=== PATIENT | female | born 1950 | race African-American/Black ===

== ENCOUNTER 2016-09-03 15:56 | Emergency (ER) | payer MEDICARE, MEDICAID ==
[~2016-09-03] VITALS: Ht 177.8 cm; Wt 120.0 kg
[~2016-09-03 15:56] MED LIST: ASPI325T PO; HYDR12.56 PO; LISIPOW XX; LORT5TAB PO; OCUF0.3D LEFT EYE; SIMV5TAB32 PO; SOMA350T PO
[2016-09-03 15:58] VITALS: BP 229/96; PULSE 72; RESP 17; TEMP 98; O2SAT 96
== END 2016-09-03 18:30 | disposition left against medical advice (07) ==
LOC: NED 15:56
DX: M25.512 Pain in left shoulder (principal); Z53.21 Procedure and treatment not carried out due to patient leaving prior to being seen by health care provider
CPT/HCPCS: 99281

== ENCOUNTER 2016-09-16 11:27 | Emergency (ER) | payer MEDICARE, MEDICAID ==
[~2016-09-16] VITALS: Ht 177.8 cm; Wt 125.0 kg
[2016-09-16 11:31] VITALS: BP 162/75; PULSE 84; RESP 16; TEMP 97.9; O2SAT 97
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
[2016-09-16] MEDS ORDERED: ACETAMINOPHEN 325 MG TAB PO ONE (13:15)
[2016-09-16] MEDS ORDERED: PROPARACAINE HCL 0.5% OPHT SOLN 15 ML BTL RIGHT EYE ONE (13:15)
[2016-09-16] MEDS ORDERED: IBUP800T23 PO (13:19)
[2016-09-16] MEDS ORDERED: ERYTOIN10 RIGHT EYE (13:19)
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
== END 2016-09-16 15:08 | disposition home or self-care (01) ==
LOC: NEPB 11:27
DX: S00.83XA Contusion of other part of head, initial encounter (principal); S05.01XA Injury of conjunctiva and corneal abrasion without foreign body, right eye, initial encounter; E11.9 Type 2 diabetes mellitus without complications; I10 Essential (primary) hypertension; E78.00 Pure hypercholesterolemia, unspecified; Z79.82 Long term (current) use of aspirin; Z95.1 Presence of aortocoronary bypass graft; Z87.39 Personal history of other diseases of the musculoskeletal system and connective tissue; Z86.59 Personal history of other mental and behavioral disorders; Z86.79 Personal history of other diseases of the circulatory system; Y04.2XXA Assault by strike against or bumped into by another person, initial encounter
CPT/HCPCS: 70486

== ENCOUNTER → 2016-09-29 | Day surgery (SDC) | payer MEDICARE, MEDICAID ==
[~2016-09-29] MED LIST changes: +AMOX875T PO; -ASPI325T PO; +BUPIVACAINE HCL PF 0.75% 30 ML VIAL ONE; +ERYTOIN10 RIGHT EYE; -HYDR12.56 PO; +IBUP800T23 PO; +LACTATED RINGER'S 1000 ML INJ 1,000 ML ONE; +LIDOCAINE 1.5%/EPINEPHrine 1:200,000 PF SOLN 30 ML AMP ONE; +LISI-519 PO; -LISIPOW XX; -LORT5TAB PO; +METF500T PO; +MIDAZOLAM HCL 5 MG/ML VIAL (1 ML) ONE; -OCUF0.3D LEFT EYE; +ONDANSETRON HCL 4 MG/2 ML VIAL IV PUSH ONE; +PROPOFOL 200 MG/20 ML AMP IV ONE; -SIMV5TAB32 PO; -SOMA350T PO; +ceFAZolin 2 GM PREMIX 50 ML ONE
--- NOTE | 2016-10-02 06:55 | MP ---
cc: BG REYES M.D. DATE OF SURGERY: 09/29/2016 PREOPERATIVE DIAGNOSIS: Left shoulder rotator cuff tear, left shoulder impingement syndrome, left shoulder osteoarthritis, acromioclavicular joint. Left shoulder osteoarthritis, glenohumeral joint. Left shoulder slap labral tear, left shoulder, multiple loose bodies, glenohumeral joint. POSTOPERATIVE DIAGNOSIS: Left shoulder rotator cuff tear, left shoulder impingement syndrome, left shoulder osteoarthritis, acromioclavicular joint. Left shoulder osteoarthritis, glenohumeral joint. Left shoulder slap labral tear, left shoulder, multiple loose bodies, glenohumeral joint. OPERATION: Left shoulder arthroscopic rotator cuff repair. Left shoulder arthroscopic subacromial decompression. Left shoulder arthroscopic distal clavicle excision left shoulder arthroscopic extensive debridement labral tear with chondroplasty and removal of loose bodies. SURGEON Dr. Bg Reyes PRACTICING UROLOGIST: SUNNI Scruggs ANESTHESIA General with interscalene block. ESTIMATED BLOOD LOSS: Less than 50 cc COMPLICATIONS None. IMPLANTS USED: Arthrex JUSTIFICATION: This patient is 56-year female who injured the left shoulder. She had persistent symptoms of pain in regards to condition with failure of conservative treatment. Clinical exam as well as MRI confirmed the above-named findings. The patient was counseled as to the risks and benefits and alternatives of the postsurgical procedure. She did wish to surgery. PROCEDURE IN DETAIL: A written consent was written consent was obtained. The patient identified, taken to the operating room and placed supine on the operating room table. General anesthesia was administered as well 2 grams of IV Ancef. The patient carefully turned to a right lateral decubitus position lateral arm was placed all bony prominences and pressure points are well padded. An arthroscopic arm mancilla was gently applied to the left upper extremity with 10 pounds of traction placed. The left shoulder prepped and draped using Isopropyl alcohol, Hibiclens solution and DuraPrep solution. A standard posterior and anterior glenohumeral arthroscope portal was established, a glenohumeral joint revealed diffuse labral tearing along the anterior superior posterior portion of the labrum with extensively debridement of the labrum which began at 3 o'clock up to the 12 o'clock position back down to the 9 o'clock position. There are multiple osteochondral loose bodies within the shoulder joint which were which were removed arthroscopically with both the shaver and grasper. There is evidence of severe chondromalacia of the glenohumeral joint with unstable cartilage fragmentation chondroplasty the glenohumeral joint was performed. Attention was turned to the subacromial space were there is significant evidence of impingement with bursitis. An arthroscopic Shaver was introduced from the right lateral portal. A subacromial decompression was performed. The shaver used to perform a bursectomy, arthroscopic pineda used to perform acromioplasty. The cautery device was used to release the coracoacromial ligament. The bur was used to perform a distal clavicle excision with 1 cm distal clavicle removed from both the lateral and anterior arthroscopic portals. There is evidence of full-thickness tear along the insertion site of supraspinatus rotator cuff tendon arthroscopic scorpion device was used to shuttle #2 fiber tape suture and a horizontal mattress pattern through the torn tendon. Subsequently the sutures were placed in the eyelet of the Arthrex 4.75 mm bio swivel lock anchor. The anchor was inserted and tuberosity for rotator cuff tendon repair. The repair was probed and noted to have good stability and fixation. At the conclusion of surgical procedure. The portals closed 3-0 Prolene suture. Sterile dressing applied. The patient placed in sling and swath immobilizer. She tolerated the procedure well. No intraoperative his noted. Reddy Islas physician after school program assistant was present during the entire procedure, to include patient positioning, anesthesia, it was felt that the medical necessity of physician after school program assistant was indicated due to complexity of the procedure, the after school program assistant assisted with manipulation of the arm also manipulation of the camera assisted with shuttling sutures and implantation of suture anchor for purpose of rotator cuff tendon repair. MD LILIANA Schneider/violeta /4:36 PM /6:21 AM
== END | disposition home or self-care (01) ==
LOC: ESDC 13:00
PROVIDERS: ATTEND Orthopaedic Surgery Sports Medicine
DX: M75.122 Complete rotator cuff tear or rupture of left shoulder, not specified as traumatic (principal); M75.42 Impingement syndrome of left shoulder; M19.012 Primary osteoarthritis, left shoulder; S43.432A Superior glenoid labrum lesion of left shoulder, initial encounter
CPT/HCPCS: 01630; 01991; 29823; 29824; 29826; 29827; 64417; C1713; J0690; J2250; J2405; J3010; J7120

== ENCOUNTER 2016-12-16 10:05 | Emergency (ER) | payer MEDICARE, MEDICAID ==
[~2016-12-16] VITALS: Ht 177.8 cm; Wt 124.0 kg
[~2016-12-16 10:05] MED LIST changes: -AMOX875T PO; -BUPIVACAINE HCL PF 0.75% 30 ML VIAL ONE; -LACTATED RINGER'S 1000 ML INJ 1,000 ML ONE; -LIDOCAINE 1.5%/EPINEPHrine 1:200,000 PF SOLN 30 ML AMP ONE; -LISI-519 PO; -METF500T PO; -MIDAZOLAM HCL 5 MG/ML VIAL (1 ML) ONE; -ONDANSETRON HCL 4 MG/2 ML VIAL IV PUSH ONE; -PROPOFOL 200 MG/20 ML AMP IV ONE; -ceFAZolin 2 GM PREMIX 50 ML ONE
[2016-12-16 10:08] VITALS: BP 201/88; PULSE 78; RESP 15; TEMP 98.2; O2SAT 98
[2016-12-16 10:30] VITALS: BP 184/80
--- NOTE | 2016-12-16 10:36 | PD ---
HPI Chief Complaint: ENT Complaint Time Seen by Provider: 10:34 Travel History International Travel<30 days: No Contact w/Intl Traveler<30days: No Traveled to known affect area: No History of Present Illness HPI 66 year old female presents to the emergency department for evaluation of left ear pain that started 3 days ago. She states the pain radiates up. No drainage. Patient reports a history of otitis media and states this feels similar. Patient denies any other complaints or symptoms. She reports history of DM, HTN, hyperlipidemia. She is on lisinopril and HCTZ for HTN, but has not yet taken her medications. PFSH Past Medical History Hx Anticoagulant Therapy: Yes (ASPIRIN ONLY) Arthritis: Yes Asthma: No Autoimmune Disease: No Blood Disorders: No Anxiety: Yes Depression: Yes Heart Rhythm Problems: No Cancer: No Cardiovascular Problems: Yes (CABG) High Cholesterol: Yes Chemotherapy: No Chest Pain: Yes Congestive Heart Failure: Yes COPD: No Cerebrovascular Accident: No Diabetes: Yes Diminished Hearing: No Endocrine: No GERD: No Glaucoma: No Headaches: No Hepatitis: No Hiatal Hernia: No Hypertension: Yes Kidney Stones: No Musculoskeletal: No Neurologic: No Psychiatric: Yes (DEPRESSION) Reproductive: No Respiratory: No Migraines: No Myocardial Infarction: No Radiation Therapy: No Renal Failure: No Seizures: No Sickle Cell Disease: No Sleep Apnea: No Thyroid Disease: No Ulcer: No ?: Not : 5 Para: 4 Miscarriage: 1 Past Surgical History Abdominal Surgery: No AICD: No Appendectomy: No Cardiac Surgery: No Cholecystectomy: No Ear Surgery: No Endocrine Surgery: No Eye Surgery: No Genitourinary Surgery: No Gynecologic Surgery: Yes (HYSTERECTOMY) Hysterectomy: Yes Insulin Pump: No Joint Replacement: No Oral Surgery: No Pacemaker: No Thoracic Surgery: No Other Surgery: Yes Social History Alcohol Use: No Tobacco Use: No Substance Use: No Allergies-Medications (Allergen,Severity, Reaction): Coded Allergies: No Known Allergies (Verified , 12/16/16) Reported Meds & Prescriptions Reported Meds & Active Scripts Active Ibuprofen 800 Mg Tab 800 Mg PO Q6HR PRN Erythromycin Opth Oint 5 Mg/Gm Oint 1 Applic RIGHT EYE QID 7 Days Review of Systems Except as stated in HPI: all other systems reviewed are Neg Physical Exam Narrative GENERAL: Well-nourished, well-developed female patient, ambulatory. Afebrile. SKIN: Focused skin assessment warm/dry. HEAD: Normocephalic. Atraumatic. ENT: Mucosa pink and moist. No erythema or exudates. No uvular edema. No uvular , palatal, or tonsillar deviation. Airway patent. Nasal turbinates appear normal without nasal blood, purulent drainage or septal hematoma. Left tympanic membrane with mild erythema. Right tympanic membranes is clear without erythema or perforation. No mastoid tenderness to palpation. EYES: No scleral icterus. No injection or drainage. NECK: Supple, trachea midline. No JVD or lymphadenopathy. CARDIOVASCULAR: Regular rate and rhythm without murmurs, gallops, or rubs. RESPIRATORY: Breath sounds equal bilaterally. No accessory muscle use. Lungs sounds are clear to auscultation. GASTROINTESTINAL: Abdomen soft, non-tender, nondistended. MUSCULOSKELETAL: No cyanosis, or edema. BACK: Nontender without obvious deformity. No CVA tenderness. Data Data Last Documented VS Vital Signs Date Time Temp Pulse Resp B/P Pulse Ox O2 Delivery O2 Flow Rate FiO2 12/16/16 10:08 98.2 78 15 201/88 98 [facility] Medical Decision Making Medical Screen Exam Complete: Yes Emergency Medical Condition: Yes Medical Record Reviewed: Yes Differential Diagnosis Otitis media versus otitis externa versus eustachian tube dysfunction Narrative Course 66-year-old female presents to the emergency department for evaluation of left ear pain for 3 days. No other symptoms. Her blood pressure is 180/84. She has not yet taken her blood pressure medications. She has no associated symptoms. Patient will be discharged with a prescription for amoxicillin. She verbalizes agreement and understanding. The patient was discharged in stable condition with instructions, including return instructions and follow up instructions. Diagnosis Primary Impression: Otitis media Qualified Code: H66.92 - Left otitis media, unspecified chronicity, unspecified otitis media type Referrals: Primary Care Physician call for appointment Patient Instructions: General Instructions, Otitis Media (ED) Additional Instructions: Take antibiotic as directed until gone. Follow up with your primary care physician. Return to the emergency department for any acute, worsening of symptoms. Med/Other Pt SpecificInfo: Prescription(s) given Scripts Amoxicillin 875 Mg Onu398 Mg PO BID 7 Days Ref 0 Prov:Priyanka Cai 12/16/16 Disposition: 01 DISCHARGE HOME Condition: Stable Priyanka Cai Dec 16, 2016 10:36
[2016-12-16] MEDS ORDERED: AMOX875T PO (10:41)
[2016-12-17] MEDS ORDERED: LISI-519 PO (07:08)
[2016-12-17] MEDS ORDERED: METF500T PO (07:08)
== END 2016-12-16 11:00 | disposition home or self-care (01) ==
LOC: NEPD 10:05
DX: H66.92 Otitis media, unspecified, left ear (principal); Z95.1 Presence of aortocoronary bypass graft; E78.00 Pure hypercholesterolemia, unspecified; I50.9 Heart failure, unspecified; E11.9 Type 2 diabetes mellitus without complications; I10 Essential (primary) hypertension
CPT/HCPCS: 99282

== ENCOUNTER 2016-12-17 06:42 | Emergency (ER) | payer MEDICARE, MEDICAID ==
[~2016-12-17] VITALS: Ht 175.3 cm; Wt 124.0 kg
[~2016-12-17 06:42] MED LIST changes: +AMOX875T PO
[2016-12-17 06:46] VITALS: BP 201/86; PULSE 60; RESP 16; TEMP 97.9; O2SAT 100
[2016-12-17] MEDS ORDERED: METF500T PO (07:08)
[2016-12-17] MEDS ORDERED: LISI-519 PO (07:08)
[2016-12-17 07:11] VITALS: BP 133/89
--- NOTE | 2016-12-17 07:26 | PD ---
HPI Chief Complaint: ENT Complaint Time Seen by Provider: 07:19 Travel History International Travel<30 days: No Contact w/Intl Traveler<30days: No Traveled to known affect area: No History of Present Illness HPI 66-year-old female presents with left-sided ear pain and sore throat that is been persistent since she was in the emergency department yesterday. She states that she has no associated chest pain, shortness of breath, nausea, fever or other concurrent complaints other than intermittent headaches. She states that she has been taking her home pain medication without significant relief. Quality is sharp. It is severe per patient. She has not taken her blood pressure medication yet this morning. She denies other change since yesterday. PFSH Past Medical History Hx Anticoagulant Therapy: Yes (ASPIRIN ONLY) Arthritis: Yes Asthma: No Autoimmune Disease: No Blood Disorders: No Anxiety: Yes Depression: Yes Heart Rhythm Problems: No Cancer: No Cardiovascular Problems: Yes (CABG) High Cholesterol: Yes Chemotherapy: No Chest Pain: Yes Congestive Heart Failure: Yes COPD: No Cerebrovascular Accident: No Diabetes: Yes Patient Takes Glucophage: No Diminished Hearing: No Endocrine: No GERD: No Glaucoma: No Headaches: No Hepatitis: No Hiatal Hernia: No Hypertension: Yes Kidney Stones: No Musculoskeletal: No Neurologic: No Psychiatric: Yes (DEPRESSION) Reproductive: No Respiratory: No Migraines: No Myocardial Infarction: No Radiation Therapy: No Renal Failure: No Seizures: No Sickle Cell Disease: No Sleep Apnea: No Thyroid Disease: No Ulcer: No Menopausal: No : 5 Para: 4 Miscarriage: 1 Past Surgical History Abdominal Surgery: No AICD: No Appendectomy: No Cardiac Surgery: No Cholecystectomy: No Coronary Artery Bypass Graft: Yes (states open heart surgery) Ear Surgery: No Endocrine Surgery: No Eye Surgery: No Genitourinary Surgery: No Gynecologic Surgery: Yes (HYSTERECTOMY) Hysterectomy: Yes Insulin Pump: No Joint Replacement: No Oral Surgery: No Pacemaker: No Thoracic Surgery: No Other Surgery: Yes Social History Alcohol Use: No Tobacco Use: No Substance Use: No Allergies-Medications (Allergen,Severity, Reaction): Coded Allergies: No Known Allergies (Verified , 12/16/16) Reported Meds & Prescriptions Reported Meds & Active Scripts Active Reported Metformin (Metformin HCl) 500 Mg Tab 500 Mg PO DAILY With a meal Lisinopril 5 Mg Tab Unknown Dose PO DAILY Review of Systems Except as stated in HPI: all other systems reviewed are Neg Physical Exam Narrative GENERAL: Well-nourished, well-developed patient. Well-appearing SKIN: Warm and dry. HEAD: Normocephalic and atraumatic. EYES: No injection or drainage. ENT: No nasal drainage noted. Bilateral TMs clear, nontender to bilateral mastoids, no drainage from bilateral canals, no erythema to bilateral canals, no pain with movement of bilateral pinna, posterior oropharynx without exudate or erythema, uvula midline, large earrings noted bilaterally with prior piercing location on left with chronic tear and new piercing location NECK: Supple, trachea midline. No meningeal signs, mild cervical lymphadenopathy diffusely that is mildly tender CARDIOVASCULAR: Regular rate and rhythm RESPIRATORY: Breath sounds equal bilaterally. No accessory muscle use. NEUROLOGICAL: Awake and alert. Motor and sensory grossly within normal limits. Normal speech. Data Data Last Documented VS Vital Signs Date Time Temp Pulse Resp B/P Pulse Ox O2 Delivery O2 Flow Rate FiO2 12/17/16 07:11 133/89 12/17/16 06:46 97.9 60 16 100 MDM Medical Decision Making Medical Screen Exam Complete: Yes Emergency Medical Condition: Yes Medical Record Reviewed: Yes (Past history confirmed) Differential Diagnosis Otitis media, seasonal allergies, URI, otitis externa... Narrative Course Patient with otitis media yesterday on exam. Patient's exam appears benign today. Advised to continue antibiotic and follow with primary for further care. Patient has not taken her blood pressure medication yet this morning and I advised her to take this and keep a blood pressure log. Given return instructions and agrees to follow-up as an outpatient. Diagnosis Primary Impression: Ear pain, left Additional Impression: Sore throat Patient Instructions: General Instructions Additional Instructions: follow with primary today, return with any emergent need, continue your home pain medication as needed Med/Other Pt SpecificInfo: No Change to Meds Disposition: 01 DISCHARGE HOME Condition: Stable Yasemin Valentine MD Dec 17, 2016 07:26
== END 2016-12-17 07:42 | disposition home or self-care (01) ==
LOC: NEPC 06:42
DX: H92.02 Otalgia, left ear (principal); J02.9 Acute pharyngitis, unspecified
CPT/HCPCS: 99283

== ENCOUNTER 2017-09-20 11:20 | Day surgery (SDC) | payer MEDICARE, MEDICAID ==
[~2017-09-20] VITALS: Ht 177.8 cm; Wt 127.8 kg
[~2017-09-20 11:20] MED LIST changes: -AMOX875T PO; -ERYTOIN10 RIGHT EYE; -IBUP800T23 PO; +LISI-519 PO; +METF500T PO
[2017-09-20] MEDS ORDERED: IOHEXOL 350 MG/ML 100 ML BTL (for Cath Lab) OTHER ONE (11:21)
[2017-09-20] MEDS ORDERED: IOHEXOL 350 MG/ML 50 ML BTL (for Cath Lab) OTHER ONE (11:21)
[2017-09-20] MEDS ORDERED: SODIUM CHLOR 0.9% 1000 ML INJ 1,000 ML IV SCH (11:45)
[2017-09-20] MEDS ORDERED: METF500T PO (11:56)
[2017-09-20] MEDS ORDERED: CARV3.125 PO (11:56)
[2017-09-20] MEDS ORDERED: HYDR-3583 PO (11:56)
[2017-09-20] MEDS ORDERED: ASPI-183 PO (11:56)
[2017-09-20] MEDS ORDERED: HYDR12.57 PO (11:56)
[2017-09-20] MEDS ORDERED: SIMV20TA PO (11:56)
[2017-09-20] MEDS ORDERED: LISI10TA3 PO (11:56)
[2017-09-20] MEDS ORDERED: METH750T PO (11:56)
[2017-09-20] MEDS ORDERED: ISOS30TA3 PO (11:56)
[2017-09-20 11:57] VITALS: BP 91/77; PULSE 63; RESP 18; TEMP 97.8; O2SAT 97
[2017-09-20 13:14] LABS: AUTOMATED NEUTROPHIL # 3.1 TH/MM3 (1.8-7.7); BASOPHIL % 0.6 % (0.0-2.0); EOSINOPHIL # 0.1 TH/MM3 (0-0.4); EOSINOPHIL % 1.9 % (0.0-4.0); LYMPH % 41.1 % (9.0-44.0); LYMPHOCYTE # 2.7 TH/MM3 (1.0-4.8); MEAN CELL VOLUME 86.6 FL (80.0-100.0); MEAN CORPUSCULAR HEMOGLOBIN 28.9 PG (27.0-34.0); MEAN CORPUSCULAR HGB CONC 33.4 % (32.0-36.0); MEAN PLATELET VOLUME 7.5 FL (7.0-11.0); MONO % 8.7 % (0.0-8.0); MONOCYTE # 0.6 TH/MM3 (0-0.9); NEUT % 47.7 % (16.0-70.0); PLATELET COUNT 312 TH/MM3 (150-450); RED CELL DISTRIBUTION WIDTH 13.3 % (11.6-17.2); WHITE BLOOD COUNT 6.5 TH/MM3 (4.0-11.0)
[2017-09-20] MEDS ORDERED: HEPARIN-NS/PF INJ 1,000 ML ONE (13:20)
[2017-09-20] MEDS ORDERED: MIDAZOLAM HCL 2 MG/2 ML VIAL ONE (13:21)
[2017-09-20 13:37] LABS: BICARBONATE 27.6 MEQ/L (21.0-32.0); CALCIUM 8.9 MG/DL (8.5-10.1); CREATININE 0.9 MG/DL (0.50-1.00)
--- NOTE | 2017-09-20 14:13 | CATHPROC ---
[facility] HIS Report Study Information Study Number Admission Scheduled Start Study Start [id number] Sep 20 2017 11:20AM 09/20/2017 Sep 20 2017 1:17PM Study Type [place] Service Left Heart Cath Cardiac Catheterization Admit Source Facility Department Other [facility] - Tug Master Physician and Clinical Staff Initial Fernandez June Chimney Builder Brick Luci Bruno,RN Recorder Casandra Owens,RT(R) Scrub Iwona Hussein,RT(R) Scrub Jazmin Davis ,RT(R) Procedures Performed Procedure Location (Site) Vessel Name Angiogram LV LV Ventricle Coronary Angiograms LCA Left Coronary Coronary Angiograms RCA Right Coronary Coronary Angiograms CARUSO-LAD Left Coronary Coronary Angiograms SVG-OM CIRC L Heart Cath Wire insertion Fem Art (right) Femoral Art Equipment Time Variety Saw Operator Description Size Mfg Part Number Used/Scraped TRANSDUCER, TRUWAVE [id number] 13:17 [employer] SALIANS * Used W/STOCKCOCK *[id number] 14:02 [employer] MED[employer] VASCADE, FR6 CLOSURE SYSTEM FR 6\7 Used *[id number] *[id number] *[id number] *[id number] 13:17 [employer] PACK, CCL CUSTOM * Used *[id number] 13:17 [employer] PACER PEN, SKIN DUAL W/ RULER * Used *[id number] 13:17 [employer] MEDICAL SHEATH, FR6.5 PRELUDE 11CM FR 6.5 038ACT Used *[id number] 13:17 [employer] MEDICAL WIRE, 3MMJ .035 180CM 180CM Used *[id number] 13:17 [employer] MANIFOLD, 4 PORT * Used *[id number] 13:17 [employer] OMNIPAQUE, 350 MG, 150ML 150ML [id number] Used [id number] 13:17 [employer] MEDICAL BLANKET,WARM AIR CCL * Used *[id number] History: Current Medications Medication Dosage/Unit Route Frequency Last Date/Time Taken ASA Imdur Statins (any) Beta Garcia LISINOPRIL HCTZ History: Allergies Allergy Reaction No Known Allergies History: Risk Factors Family History of Hypertension Dyslipidemia Previous CA Previous Heart Failure Premature CAD Yes Yes Yes Yes No Prior Valve Prior PCI Prior CABG Prior CABGDate Surgery No No Yes 12/03/2009 Cerebrovascular Peripheral Artery Chronic Lung On Dialysis Diabetes Diabetes Therapy Disease Disease Disease No No No No Yes Oral History: Symptoms/Diagnosis Selection Items Chest pain History: CV Disease Selection Items Known CAD History: Stress Tests Stress or Imaging Studies Performed Yes Standard Exercise Stress Test No Stress Echo No Stress Test SPECT Stress Test SPECT Result Stress Test SPECT Ischemia Risk/Extent Yes Positive Low Stress Test CMR No Cardiac CTA Coronary Calcium Score No No History: Other Disease Selection Items CAD HTN History: Other Current Smoker Method Quit Packs a Day Years Used Pack Years No Cigarettes 8 Years Ago 2 30 60 Labs Hgb (g/dl) Hct (%) RBC (MIL/MM3) WBC (l/cumm) Platelets (thousands) 11.60-17.00 35.00-51.00 4.00-5.90 4.00-11.00 150.00-450.00 13.0 39 4.5 6.5 312 Glucose (mg/dl) BUN (mg/dl) Creatinine (mg/dl) BUN:Creatinine (1:x) 74.00-106.00 7.00-18.00 0.50-1.30 10.00-20.00 86 13 0.9 14.4 Na (meq/l) K (meq/l) Cl (meq/l) CO2 (mmol/L) Ca (mg/dl) 136.00-145.00 3.50-5.10 98.00-107.00 21.00-32.00 8.50-10.10 144 4.3 111 27.6 8.9 CPK-MB (ng/ML) 0.50-3.60 Not Drawn Medication Medication Total Dose (Bolus/Oral) Medication Total Dosage/Unit 1% XYLOCAINE 20 mL VERSED 2 mg Medications (Bolus/Oral) Medication Time Given Dosage/Unit Administered By Reason 1% XYLOCAINE 09/20/2017 1:48:14 PM 20 mL Fernandez Major 20 mL 1% XYLOCAINE given in lab by Fernandez Major in Right Groin via Subcutaneous. VERSED 09/20/2017 1:48:43 PM 2 mg Luci Bruno 2 mg VERSED given in lab by Luci Bruno, RN via Peripheral IV. Medication (Drip) Medication Time Given Dosage/Unit Concentration/Unit Diluent (ml) Solution IV Solutions 09/20/2017 1:17:39 PM 0 mL (IV) NaCl .9 Patient arrived on IV Solutions in Left Forearm via Peripheral IV. Pump/Drip Flow = 20 ml/hr using Na Cl .9. Initial Case Assessment Cardiovascular HR Rhythm NIBP Chest Pain 66 reg 180/84 0 Edema Present Skin color Skin None Normal Warm Circulatory - Right Pulses Dorsalis Pedis Femoral 3 2 Scale (0,1,2,3,4,d) Circulatory - Left Pulses Dorsalis Pedis Femoral 2 2 Scale (0,1,2,3,4,d) Circulatory - Lower Extremities Color Lower Right Color Lower Left Normal Normal Neurological State Oriented to time-place- Alert Moves all extremities person Respiration - General Respiration Rate SpO2 (%) (B/min) 17 100 Final Case Assessment Cardiovascular HR Rhythm NIBP Chest Pain 71 reg 181/84 0 Edema Present Skin color Skin None Normal Warm Circulatory - Right Pulses Dorsalis Pedis Femoral 3 2 Scale (0,1,2,3,4,d) Circulatory - Left Pulses Dorsalis Pedis Femoral 2 2 Scale (0,1,2,3,4,d) Circulatory - Lower Extremities Color Lower Right Color Lower Left Normal Normal Neurological State Oriented to time-place- Alert Moves all extremities person Respiration - General Respiration Rate SpO2 (%) (B/min) 16 97 Chronological Log Time Study Chronological Log 13:13:15 Patient arrived via Bed. 13:17:19 Patient Name, D.O.B, / Armband Verified By R.N. 13:17:20 Consent signed by the physician and the patient and verified by the Tug Master staff. 13:17:21 Pre-op and post- op instructions given; patient acknowledges understanding of instructions. 13:17:21 Verbal Stimulation=2 Physical Stimulation=2 Airway=2 Respiration=2 TOTAL=8. (0=absent, 1=li mited, 2=present) 13:17:22 Presedation assessment performed by Tug Master RN. 13:17:24 Patient has been NPO for More than 6Hrs. 13:17:24 Skin Breakdown- 13:17:28 Estiven Prominences Protected 13:17:30 A # 20 IV was noted in the Forearm (left). Grade = 0 13:17:39 Patient arrived on IV Solutions in Left Forearm via Peripheral IV. Pump/Drip Flow = 20 ml/h r using NaCl .9. 13:17:40 History and physical on the chart or being dictated. Assessment: Initial Case, HR=66 BPM, Rhythm=reg, IEHD=594/84 mmhg, Chest Pain=0, Edema=None, Co dahlia=Normal, Skin = Warm Right Pulses: Manuel Ped=3, Femoral=2 Left Pulses: Manuel Ped=2, Femoral=2 13:17:41 Lower Right Extremities: Color=Normal Lower Left Extremities: Color=Normal Neurological: State=Alert, Ox3, LAMB Respiration: Resp=17 B/min, KyO6=300 % Vitals capture started with the following parameters, Patient=Adult, Interval=5 min, Initial Pr jycurv=343 mmHg, 13:20:49 Deflation Rate=5 mmHg, Cuff placed on right Arm 13:21:16 Reference ECG taken 13:22:22 HR=64 bpm, MXQO=199/84 mmhg, LcI3=376.0 %, Resp=16 B/min, Pain=0, Rolando=10, Mendoza=2 13:25:53 Bilateral groins prepped with 2% chlorhexidine, and draped after a 3 minute waiting time. 13:26:38 HR=66 bpm, AVPB=267/84 mmhg, FyS8=098.0 %, Resp=12 B/min, Pain=0, Rolando=10, Mendoza=2 13:32:07 HR=64 bpm, XWMS=694/89 mmhg, SpO2=93.0 %, Resp=16 B/min, Pain=0, Rolando=10, Mendoza=2 13:36:15 MD paged 13:36:34 HR=68 bpm, UPHO=937/91 mmhg, SpO2=99.0 %, Resp=13 B/min, Pain=0, Rolando=10, Mendoza=2 13:38:21 MD responded 13:39:27 Pressure channel 1 zeroed. 13:42:24 HR=68 bpm, TKAX=673/94 mmhg, McT0=328.0 %, Resp=14 B/min, Pain=0, Rolando=10, Mendoza=2 13:43:43 MD arrived. 13:46:38 HR=66 bpm, BCER=834/91 mmhg, SpO2=99.0 %, Resp=17 B/min, Pain=0, Rolando=10, Mendoza=2 Time Out. Correct patient, correct procedure, correct physician, power injector loaded, or not loaded with contrast with 13:46:55 surgical team present. Time Out Concurred by MD and individual staff in procedure. 13:47:41 Case Start 13:47:58 Verbal Stimulation=2 Physical Stimulation=2 Airway=2 Respiration=2 TOTAL=8. (0=absent, 1=li mited, 2=present) 13:48:14 20 mL 1% XYLOCAINE given in lab by Fernandez Major in Right Groin via Subcutaneous. 13:48:43 2 mg VERSED given in lab by Luci Bruno, ANGELA via Peripheral IV. 13:49:53 Access site was Right Femoral Artery. 13:49:59 A wire was inserted via Fem Art (right). 13:50:01 A SHEATH, FR6.5 PRELUDE 11CM FR 6.5 was advanced into the Fem Art (right) using the Percuta neous technique. Recorded Pressure: Ao, HR=69, Condition=Condition 1 13:50:17 (Aorta) Ao 176/76/117 A 3DRC INFINITI CATHETER FR 6 was advanced over a wire. OMNIPAQUE, 350 MG, 150ML 150ML was used for 13:50:27 injections. 13:50:45 The RCA was injected and visualized at various angles. OMNIPAQUE, 350 MG, 150ML 150ML used . 13:51:11 The SVG-OM was injected and visualized at various angles. OMNIPAQUE, 350 MG, 150ML 150ML us ed. 13:51:39 HR=64 bpm, NGGZ=764/85 mmhg, SpO2=98.0 %, Resp=19 B/min, Pain=0, Rolando=10, Mendoza=2 13:52:30 The CARUSO-LAD was injected and visualized at various angles. OMNIPAQUE, 350 MG, 150ML 150ML used. 13:53:56 Catheter was removed A JL 4.0 INFINITI CATHETER FR 6 was advanced over a wire. OMNIPAQUE, 350 MG, 150ML 150ML was us ed for 13:54:45 injections. 13:55:26 The LCA was injected and visualized at various angles. OMNIPAQUE, 350 MG, 150ML 150ML used . 13:57:18 Catheter was removed 13:57:25 HR=68 bpm, QHSD=064/75 mmhg, SpO2=97.0 %, Resp=16 B/min, Pain=0, Rolando=10, Mendoza=2 13:57:52 power injctor loaded now by Lashell Bruno and verified by Connie Owens A PIGTAIL STR INFINITI CATHETER FR 6 was advanced over a wire. OMNIPAQUE, 350 MG, 150ML 150ML was used for 13:58:36 injections. Recorded Pressure: LV, HR=73, Condition=Condition 1 13:59:03 (Left Ventricle) LV 185/10/27 13:59:13 The LV was injected at 12 cc/sec for a total of 38. OMNIPAQUE, 350 MG, 150ML 150ML used. Recorded Pressure: LV, Ao, HR=74, Condition=Condition 1 14:00:30 (Left Ventricle) LV 177/12/20, (Aorta) Ao 177/73/117 14:01:01 Catheter was removed 14:01:39 HR=72 bpm, MIMV=339/84 mmhg, SpO2=98.0 %, Resp=11 B/min, Pain=0, Rolando=10, Mendoza=2 14:03:03 Case End Assessment: Final Case, HR=71 BPM, Rhythm=reg, PGMQ=424/84 mmhg, Chest Pain=0, Edema=None, Col or=Normal, Skin = Warm Right Pulses: Manuel Ped=3, Femoral=2 Left Pulses: Manuel Ped=2, Femoral=2 14:03:08 Lower Right Extremities: Color=Normal Lower Left Extremities: Color=Normal Neurological: State=Alert, Ox3, LAMB Respiration: Resp=16 B/min, SpO2=97 % 14:03:45 Catheter(s) removed without difficulty 14:03:49 VASCADE, FR6 CLOSURE SYSTEM FR 6\7 placement in the Fem Art (right) 14:04:24 Sterile dressing applied to site 14:04:24 No case complications noted. 14:04:25 Cine recording checked. 14:04:29 Bedside Report will be given. 14:04:30 Contrast Scanned 14:04:32 A Left Heart Cath was performed. 14:04:34 Clinical correlaton risk stratification. 14:06:42 HR=69 bpm, CHMI=039/74 mmhg, SpO2=97.0 %, Resp=14 B/min, Pain=0, Rolando=10, Mendoza=2 14:11:00 Vitals capture stopped. End Study - Contrast Media Used In Study Contrast Total Opened (mL) Total Used (mL) Total Wasted (mL) Omnipaque 125 125 0 End Study - Maximum Contrast Load Max Contrast Load (mL) 705.6 End Study - Radiation Exposure Fluoro Time (minutes) 3.7 End Study - Sheaths Sheaths Pulled By Sheath Hold Time (min) Iwona Hussein End Study - Patient Disposition Complications Transferred To No Outpatient Bed
[2017-09-20] MEDS ORDERED: SODIUM CHLOR 0.9% 1000 ML INJ 1,000 ML IV ONE (14:14)
[2017-09-20] MEDS ORDERED: ATROPINE SULFATE 1 MG/ML VIAL IVP PRN (14:15)
[2017-09-20] MEDS ORDERED: SODIUM CHLOR 0.9% 250 ML INJ 250 ML IV PRN (14:15)
[2017-09-20] MEDS ORDERED: ONDANSETRON HCL 4 MG/2 ML VIAL IV PUSH PRN (14:15)
--- NOTE | 2017-09-20 14:25 | MA ---
cc: JAILYN BIRD M.D. DATE 09/20/2017 PROCEDURE Left heart catheterization, selective coronary and graft angiography, left ventriculography. PROCEDURE NOTE The patient was brought to the cardiac catheterization laboratory in a fasting state after having signed informed consent. The right groin was prepped and draped as per policy and anesthetized with 1% lidocaine. Arterial access was obtained via the right femoral artery and a 6 Sinhala sheath placed. Coronary arteriography was performed using 6 Sinhala Ananth left 4.0 and right progressive catheters. The bypass grafts were engaged with the progressive right catheter. There were no apparent immediate complications. Her arteriotomy site was closed with Vascade. HEMODYNAMIC DATA Left ventricle 177 with an end-diastolic pressure of 12. Aorta 177/73 with a mean of 117. There was no significant transvalvular aortic gradient on pullback of the pigtail catheter. CORONARY ARTERIOGRAPHY The left main tapers down to possibly 25% stenosis distally. The left anterior descending gives rise to small diagonals which are free of disease. No disease is seen in the LAD. The left circumflex demonstrates competitive flow. It is a medium-sized vessel giving rise to a relatively small caliber first obtuse marginal and medium-sized second obtuse marginal. There is possibly up to 40-50% ostial to proximal disease in the left circumflex. The right coronary artery is a medium-sized dominant vessel with minimal luminal irregularities proximally. GRAFT ANGIOGRAPHY The vein graft to the obtuse marginal is widely patent. The left internal mammary artery to the LAD is patent although atretic with sluggish flow likely due to the absence of significant disease in the LAD. LEFT VENTRICULOGRAPHY Contrast injection of the left ventricle reveals no segmental wall motion abnormalities. Ejection fraction is estimated at 60%. CONCLUSIONS 1. Overall mild to moderate disease of the left circumflex and mild distal left main disease. 2. Patent left internal mammary artery to the LAD although this graft is atretic likely due to the absence of hemodynamically significant disease in the left main and LAD. 3. Patent vein graft to the obtuse marginal. 4. Normal left ventricular function with estimated ejection fraction of 60%. MD CYNTHIA Vera/KATHY /2:07 PM 2:15 PM ANAHI
--- NOTE | 2017-09-20 21:45 | EKG ---
Date Performed: 09/20/2017 Time Performed: 12:39:34 PTAGE: 67 years EKG: Sinus bradycardia with sinus arrhythmia with PVC(s). 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
== END 2017-09-20 16:46 | disposition home or self-care (01) ==
LOC: HDOC 11:20 → HDIC 11:21 → HDOC 16:46
PROVIDERS: ATTEND Internal Medicine Cardiovascular Disease
DX: I25.10 Atherosclerotic heart disease of native coronary artery without angina pectoris (principal); I10 Essential (primary) hypertension; E78.5 Hyperlipidemia, unspecified; E11.9 Type 2 diabetes mellitus without complications; Z79.84 Long term (current) use of oral hypoglycemic drugs; Z79.82 Long term (current) use of aspirin; Z95.1 Presence of aortocoronary bypass graft
CPT/HCPCS: 80048; 85025; 93005; 93459; 99152; C1760; C1769; C1893; G0269; J1644; J2250; 85610; 85730; Q9967

== ENCOUNTER 2017-09-29 15:09 | Emergency (ER) | payer MEDICARE, MEDICAID ==
[~2017-09-29] VITALS: Ht 177.8 cm; Wt 130.0 kg
[~2017-09-29 15:09] MED LIST changes: +ASPI-183 PO; +CARV3.125 PO; +HYDR-3583 PO; +HYDR12.57 PO; +ISOS30TA3 PO; -LISI-519 PO; +LISI10TA3 PO; +METH750T PO; +SIMV20TA PO
[2017-09-29 15:11] VITALS: BP 201/97; PULSE 88; RESP 18; TEMP 98.4; O2SAT 99
[2017-09-29 15:51] VITALS: BP 197/89
--- NOTE | 2017-09-29 15:59 | PD ---
HPI Chief Complaint: Skin Problem Time Seen by Provider: 15:46 Travel History International Travel<30 days: No Contact w/Intl Traveler<30days: No Traveled to known affect area: No History of Present Illness HPI Examined in the presence of a female nurse. This is a 67-year-old female who presents for evaluation of a rash. Symptoms started 1 week ago. She reports pruritic skin on her chest wall and posterior left arm. Symptoms are mild, aggravated by scratching with no relieving factors. She tried putting alcohol in the skin which did not seem to help at all. She did recently have a cardiac catheterization in mid August and she reports that she was started on 2 new medications by her ethnographic materials conservator but she does not remember the name of the medications and she does not have them with her. She denies any widespread rash. She denies any new creams, lotions, detergents, clothing, change in living environment. No sick contacts with rash. Besides pruritus she denies any other symptoms. PFSH Past Medical History Hx Anticoagulant Therapy: Yes Arthritis: Yes Asthma: No Autoimmune Disease: No Blood Disorders: No Anxiety: Yes Depression: Yes Heart Rhythm Problems: No Cancer: No Cardiovascular Problems: Yes High Cholesterol: Yes Chemotherapy: No Chest Pain: Yes Congestive Heart Failure: Yes COPD: No Cerebrovascular Accident: No Diabetes: Yes Diminished Hearing: No Endocrine: No Gastrointestinal Disorders: No GERD: No Glaucoma: Yes (bilateral) Headaches: No Hepatitis: No Hiatal Hernia: No Hypertension: Yes Kidney Stones: No Musculoskeletal: No Neurologic: No Psychiatric: Yes (DEPRESSION) Reproductive: No Respiratory: No Migraines: No Myocardial Infarction: No Radiation Therapy: No Renal Failure: No Seizures: No Sickle Cell Disease: No Sleep Apnea: No Thyroid Disease: No Ulcer: No Menopausal: No : 5 Para: 4 Miscarriage: 1 Past Surgical History Abdominal Surgery: No AICD: No Appendectomy: No Cardiac Surgery: No Cholecystectomy: No Coronary Artery Bypass Graft: Yes (states open heart surgery) Ear Surgery: No Endocrine Surgery: No Eye Surgery: No Genitourinary Surgery: No Gynecologic Surgery: Yes (HYSTERECTOMY) Hysterectomy: Yes Insulin Pump: No Joint Replacement: No Oral Surgery: No Pacemaker: No Thoracic Surgery: No Other Surgery: Yes Social History Alcohol Use: No Tobacco Use: No Substance Use: No Allergies-Medications (Allergen,Severity, Reaction): Coded Allergies: No Known Allergies (Verified Allergy, Unknown, 09/29/17) Reported Meds & Prescriptions Reported Meds & Active Scripts Active Reported Simvastatin 20 Mg Tab 20 Mg PO DAILY Lisinopril 10 Mg Tab 10 Mg PO DAILY Metformin (Metformin HCl) 500 Mg Tab 500 Mg PO BIDPC Isosorbide Mononitrate ER (Isosorbide Mononitrate) 30 Mg Ilir 30 Mg PO DAILY Hydrocodone-Acetaminophen 10-325 mg Tab 1 Tab PO Q4H PRN Hydrochlorothiazide 12.5 Mg Cap 12.5 Mg PO DAILY Coreg (Carvedilol) 3.125 Mg Tab 3.125 Mg PO BID Aspirin 325 Mg Tab 325 Mg PO DAILY Review of Systems General / Constitutional: No: Fever, Chills Cardiovascular: No: Chest Pain or Discomfort Respiratory: No: Cough, Shortness of Breath Gastrointestinal: No: Nausea, Vomiting Skin: Positive Rash, Positive Itching Physical Exam Narrative GENERAL: Well-developed well-nourished female no acute distress SKIN: Warm and dry. Patient has a few small papular lesions in the upper chest wall posterior left arm with linear excoriation secondary to scratching. No vesicles, no pustules, no petechiae, no purpura, no hives, no annular lesions, no blister lesions. HEAD: Atraumatic. Normocephalic. EYES: Pupils equal and round. No scleral icterus. No injection or drainage. ENT: No nasal bleeding or discharge. Mucous membranes pink and moist. NECK: Trachea midline. No JVD. CARDIOVASCULAR: Regular rate and rhythm. No murmur appreciated. RESPIRATORY: No accessory muscle use. Clear to auscultation. Breath sounds equal bilaterally. Data Data Last Documented VS Vital Signs Date Time Temp Pulse Resp B/P (MAP) Pulse Ox O2 Delivery O2 Flow Rate FiO2 09/29/17 15:51 197/89 (125) 09/29/17 15:11 98.4 88 18 99 MDM Medical Decision Making Medical Screen Exam Complete: Yes Emergency Medical Condition: Yes Medical Record Reviewed: Yes Differential Diagnosis Allergic contact dermatitis, fixed drug abruption, irritant contact dermatitis, atopic dermatitis Narrative Course The patient has excoriated papular lesions on her chest wall and posterior left arm secondary to scratching which has been ongoing for the past week. Her rash is very nonspecific. It is not widespread to suggest systemic allergic reaction /fixed drug eruption from 1 of her new medications. Most likely this rash is self-limited and resolve with symptomatic treatment. Recommended over-the- counter antihistamines for rash. Her blood pressure is noted to be quite high, she does have a history of hypertension and is on blood pressure medications. She is encouraged to follow-up with her primary care physician next week to discuss her blood pressure for possible change in her medication regimen. She is agreeable with this plan. Diagnosis Primary Impression: Pruritic rash Additional Instructions: [id number] Benadryl for itching. Quit using alcohol on your skin. Avoid scratching. As discussed, monitor blood pressure on a regular basis and follow- up with primary care physician next week. Return for any emergent medical conditions. Med/Other Pt SpecificInfo: No Change to Meds Disposition: 01 DISCHARGE HOME Condition: Stable Doc Hernandes Sep 29, 2017 15:59
== END 2017-09-29 16:29 | disposition home or self-care (01) ==
LOC: NEPK 15:09
DX: R21 Rash and other nonspecific skin eruption (principal); I11.0 Hypertensive heart disease with heart failure; I50.9 Heart failure, unspecified; E11.9 Type 2 diabetes mellitus without complications; M19.90 Unspecified osteoarthritis, unspecified site; E78.00 Pure hypercholesterolemia, unspecified; F41.9 Anxiety disorder, unspecified; F32.9 Major depressive disorder, single episode, unspecified; H40.9 Unspecified glaucoma
CPT/HCPCS: 99282

== ENCOUNTER 2018-02-08 16:43 | Emergency (ER) | payer MEDICARE, MEDICAID ==
[~2018-02-08] VITALS: Ht 177.8 cm; Wt 130.0 kg
[~2018-02-08 16:43] MED LIST changes: -METH750T PO
[2018-02-08 16:45] VITALS: BP 171/77; PULSE 80; RESP 16; TEMP 98.3; O2SAT 96
[2018-02-08] MEDS ORDERED: KETOROLAC TROMETHAMINE 60 MG/2 ML (IM) VIAL IM ONE (17:00)
--- NOTE | 2018-02-08 17:05 | PD ---
HPI Chief Complaint: ENT Complaint Time Seen by Provider: 16:52 Travel History International Travel<30 days: No Contact w/Intl Traveler<30days: No Traveled to known affect area: No History of Present Illness HPI 67-year-old female presents to the emergency department with complaint of left ear pain that radiates down her left neck into her face 3 days. No injury. Denies drainage from her ear. Denies change in hearing. Denies sore throat, difficulty swallowing, unusual drooling. Denies nasal congestion, cough, fever , vomiting. Says she has dentures both upper and lower and denies oral pain. Has been taking prescribed Lortab and Advil for symptom management with no relief. Rates pain 8/10. No known aggravating or relieving factors. Described as pressure. Primary care provider is Dr. Cleaning. No known allergies. History of hypertension. Has no other medical complaints. No other modifying factors or associated signs and symptoms. PFSH Past Medical History Hx Anticoagulant Therapy: Yes Arthritis: Yes Asthma: No Autoimmune Disease: No Blood Disorders: No Anxiety: Yes Depression: Yes Heart Rhythm Problems: No Cancer: No Cardiovascular Problems: Yes High Cholesterol: Yes Chemotherapy: No Chest Pain: Yes Congestive Heart Failure: Yes COPD: No Cerebrovascular Accident: No Diabetes: Yes Diminished Hearing: No Endocrine: No Gastrointestinal Disorders: No GERD: No Glaucoma: Yes (bilateral) Headaches: No Hepatitis: No Hiatal Hernia: No Hypertension: Yes Kidney Stones: No Musculoskeletal: No Neurologic: No Psychiatric: Yes (DEPRESSION) Reproductive: No Respiratory: No Migraines: No Myocardial Infarction: No Radiation Therapy: No Renal Failure: No Seizures: No Sickle Cell Disease: No Sleep Apnea: No Thyroid Disease: No Ulcer: No ?: Not Menopausal: No : 5 Para: 4 Miscarriage: 1 Past Surgical History Abdominal Surgery: No AICD: No Appendectomy: No Cardiac Surgery: No Cholecystectomy: No Coronary Artery Bypass Graft: Yes (states open heart surgery) Ear Surgery: No Endocrine Surgery: No Eye Surgery: No Genitourinary Surgery: No Gynecologic Surgery: Yes (HYSTERECTOMY) Hysterectomy: Yes Insulin Pump: No Joint Replacement: No Oral Surgery: No Pacemaker: No Thoracic Surgery: No Other Surgery: Yes Social History Alcohol Use: No Tobacco Use: No Substance Use: No Allergies-Medications (Allergen,Severity, Reaction): Coded Allergies: No Known Allergies (Verified Allergy, Unknown, 02/08/18) Reported Meds & Prescriptions Reported Meds & Active Scripts Active Reported Simvastatin 20 Mg Tab 20 Mg PO DAILY Lisinopril 10 Mg Tab 10 Mg PO DAILY Metformin (Metformin HCl) 500 Mg Tab 500 Mg PO BIDPC Isosorbide Mononitrate ER (Isosorbide Mononitrate) 30 Mg Ilir 30 Mg PO DAILY Hydrocodone-Acetaminophen 10-325 mg Tab 1 Tab PO Q4H PRN Hydrochlorothiazide 12.5 Mg Cap 12.5 Mg PO DAILY Coreg (Carvedilol) 3.125 Mg Tab 3.125 Mg PO BID Aspirin 325 Mg Tab 325 Mg PO DAILY Review of Systems Except as stated in HPI: all other systems reviewed are Neg Physical Exam Narrative GENERAL: Well-nourished, well-developed black patient, in no acute distress; afebrile, nontoxic-appearing SKIN: Warm and dry. No rash. HEAD: Atraumatic. Normocephalic. EYES: Pupils equal and round. No scleral icterus. No injection or drainage. ENT: Mucosa pink and moist. Oropharynx with no erythema or exudates. No uvular edema. No uvular, palatal, or tonsillar deviation. Airway patent. EARS: Bilateral pinnae and external canals appear within normal limits. Bilateral tympanic membranes without erythema, dullness or perforation. No tenderness with pulling on the left pinna. No swelling or tenderness on palpation to the mastoid area or left face. no facial edema or erythema.no rash noted. No preauricular or postauricular lymphadenopathy. MOUTH: Mucous membranes moist, no lesions, tongue and gums appear normal. No tenderness on palpation of the gingiva. No obvious abscesses noted. Complete edentulous. NECK: Trachea midline. No anterior cervical lymphadenopathy or tenderness on palpation. Tenderness on palpation to the left lateral musculature of the neck. CARDIOVASCULAR: Regular rate RESPIRATORY: No accessory muscle use. GASTROINTESTINAL: Obese. MUSCULOSKELETAL: No obvious deformities. No clubbing. No cyanosis. No edema. NEUROLOGICAL: Awake and alert. Oriented 3. No obvious cranial nerve deficits. Motor grossly within normal limits. Normal speech. Moves all extremities. 5/5 strength to all extremities. PSYCHIATRIC: Appropriate mood and affect; insight and judgment normal. Data Data Last Documented VS Vital Signs Date Time Temp Pulse Resp B/P (MAP) Pulse Ox O2 Delivery O2 Flow Rate FiO2 02/08/18 16:45 98.3 80 16 171/77 (108) 96 Orders Orders Ketorolac Inj (Toradol Inj) (02/08/18 17:00) Ed Discharge Order (02/08/18 17:05) [facility] Medical Decision Making Medical Screen Exam Complete: Yes Emergency Medical Condition: Yes Medical Record Reviewed: Yes Differential Diagnosis Otitis media, otitis externa, cerumen impaction, shingles, dentalgia, pharyngitis Narrative Course 67-year-old female with nonspecific left ear pain. Physical exam is unremarkable except for some reproducible tenderness to the left lateral musculature of the neck. I do not know if this is the source of her pain. She is moving her neck freely. She is afebrile and nontoxic-appearing. She denies fever, vomiting. I reviewed her medical record and saw that she has been seen for a similar complaint. Toradol administered in the ER. Instructed patient to take prescribed Lortabs for continued pain. Instructed patient to follow-up with ENT specialist if symptoms persist. Instructed patient to follow up with primary care provider. Patient verbalizes understanding and agreement with treatment plan. Patient is medically cleared and stable for discharge. Discussed reasons to return to the emergency department. Patient agrees with treatment plan. The patients vital signs are stable and the patient is stable for outpatient follow-up and treatment. Patient discharged home, stable and in no acute distress. Diagnosis Primary Impression: Ear pain, left Referrals: Ear / Nose / Throat Specialist Primary Care Physician Patient Instructions: General Instructions Additional Instructions: Take your prescribed pain medications as needed for pain Heating pad and/or ice to the affected area as needed for pain Follow-up with ear nose throat specialist if symptoms continue Follow-up with primary care provider Return to the emergency department immediately if worsening of symptoms Med/Other Pt SpecificInfo: No Change to Meds, No Meds Exist/No RX given Disposition: 01 DISCHARGE HOME Condition: Stable [place] Murphy Feb 08, 2018 17:04
== END 2018-02-08 17:23 | disposition home or self-care (01) ==
LOC: NEPK 16:43
DX: H92.02 Otalgia, left ear (principal); E78.00 Pure hypercholesterolemia, unspecified; I11.0 Hypertensive heart disease with heart failure; I50.9 Heart failure, unspecified; E11.9 Type 2 diabetes mellitus without complications; M19.90 Unspecified osteoarthritis, unspecified site; F32.9 Major depressive disorder, single episode, unspecified; Z95.1 Presence of aortocoronary bypass graft; Z79.84 Long term (current) use of oral hypoglycemic drugs; Z79.899 Other long term (current) drug therapy
CPT/HCPCS: 96372; 99283; J1885